=== PATIENT | female | born 1980 | race Caucasian/White ===

== ENCOUNTER 2021-04-03 02:47 | Emergency (ER) | payer MEDICAID ==
[~2021-04-03] VITALS: Ht 170.2 cm; Wt 60.0 kg
--- NOTE | 2021-04-04 17:42 | EKG ---
[facility] [address] [facility] [place], [place] [address] Signed Normal sinus rhythm Incomplete right bundle branch block Nonspecific ST abnormality Abnormal ECG No previous ECGs available Confirmed by LIGIA LEIGH DO ([id number]) on 04/04/2021 5:42:36 PM Electronically Signed By: LIGIA LEIGH DO 04/04/212 PATIENT NAME: AIDA JAMES Electrocardiogram DATE OF : 76 PHYSICIAN: LIGIA LEIGH DO REPORT #: [id number] REPORT IS CONFIDENTIAL AND NOT TO BE RELEASED WITHOUT AUTHORIZATION
== END 2021-04-03 09:20 ==
LOC: ED 02:47
DX: A41.9 Sepsis, unspecified organism (principal); R65.21 Severe sepsis with septic shock; U07.1 COVID-19; I46.9 Cardiac arrest, cause unspecified; N17.9 Acute kidney failure, unspecified
CPT/HCPCS: 31500; 36556; 36600; 51702; 70450; 71045; 71250; 74176; 80048; 80053; 81001; 82803; 83605; 83735; 84484; 85025; 85379; 85610; 85730; 87040; 92950; 93005; 93010; 94002; 99291; 99292; J0171; J2060; J2185; J7030; U0003